=== PATIENT | female | born 1935 | race Two or more races ===

== ENCOUNTER 2019-02-22 20:05 | Emergency (ER) | payer OTHER ==
[~2019-02-22] VITALS: Ht 152.4 cm; Wt 74.8 kg
[~2019-02-22 20:05] MED LIST: ARICEPT5 MG; ATORVASTATIN CA20 MG; AVAPRO75 MG; COLCHICINE0.6 MG; CYMBALTA30 MG; FOLTX TABLET1 EACH; HYDROCHLORIC2 MG/ML; NAMENDA10 MG; NORVASC5 MG; SERTRALINE HCL50 MG; TOPROL XL200 MG; TRAMADOL HCL-AP1 TAB PO; ULTRACET PO; VYTORIN 10-40 M1 TAB; [UNRECOGNIZED DRUG - OTHER]
== END 2019-02-22 22:03 | disposition home or self-care (01) ==
LOC: ER 20:05
DX: S60.212A Contusion of left wrist, initial encounter (principal); W18.39XA Other fall on same level, initial encounter; Y93.89 Activity, other specified; Y92.018 Other place in single-family (private) house as the place of occurrence of the external cause; Y99.8 Other external cause status

== ENCOUNTER → 2019-05-15 | Emergency (ER) | payer OTHER ==
[~2019-05-15] VITALS: Ht 162.6 cm; Wt 68.0 kg
== END | disposition home or self-care (01) ==
LOC: ER 02:32
DX: S01.02XA Laceration with foreign body of scalp, initial encounter (principal); S00.83XA Contusion of other part of head, initial encounter; W18.09XA Striking against other object with subsequent fall, initial encounter; Y93.89 Activity, other specified; Y92.098 Other place in other non-institutional residence as the place of occurrence of the external cause; Y99.8 Other external cause status

== ENCOUNTER 2019-05-20 10:25 | Emergency (ER) | payer OTHER ==
[~2019-05-20] VITALS: Ht 157.5 cm; Wt 59.0 kg
[2019-05-20] MEDS ORDERED: NAMENDA10 MG PO (10:39)
[2019-05-20] MEDS ORDERED: ATACAND16 MG PO (10:39)
[2019-05-20] MEDS ORDERED: SEROQUEL25 MG PO (10:40)
[2019-05-20] MEDS ORDERED: ARICEPT5 MG PO (10:40)
[2019-05-20] MEDS ORDERED: OSTERA TABLET1 EACH PO (10:40)
[2019-05-20] MEDS ORDERED: FOLTX TABLET1 EACH PO (10:40)
[2019-05-20] MEDS ORDERED: LIPITOR20 MG PO (10:40)
[2019-05-20] MEDS ORDERED: TOPROL XL100 M1 PO (10:41)
[2019-05-20] MEDS ORDERED: ZOLOFT50 MG PO (10:41)
== END 2019-05-20 14:02 | disposition home or self-care (01) ==
LOC: ER 10:25
DX: M10.072 Idiopathic gout, left ankle and foot (principal); G89.11 Acute pain due to trauma

== ENCOUNTER 2020-01-18 10:24 | Emergency (ER) | payer OTHER ==
[~2020-01-18] VITALS: Ht 162.6 cm; Wt 72.6 kg
[~2020-01-18 10:24] MED LIST changes: +ARICEPT5 MG PO; +ATACAND16 MG PO; +FOLTX TABLET1 EACH PO; +LIPITOR20 MG PO; +NAMENDA10 MG PO; +OSTERA TABLET1 EACH PO; +SEROQUEL25 MG PO; +TOPROL XL100 M1 PO; +ZOLOFT50 MG PO
== END 2020-01-18 14:22 | disposition home or self-care (01) ==
LOC: ER 10:24
DX: S01.02XA Laceration with foreign body of scalp, initial encounter (principal); W18.09XA Striking against other object with subsequent fall, initial encounter; Y93.89 Activity, other specified; Y92.018 Other place in single-family (private) house as the place of occurrence of the external cause; Y99.8 Other external cause status